=== PATIENT | female | born 1990 | race Caucasian/White ===

== ENCOUNTER 2016-03-25 09:57 | Emergency (ER) | payer OTHER ==
[~2016-03-25] VITALS: Ht 167.6 cm; Wt 70.9 kg
[2016-03-25 10:03] VITALS: TEMP 99
[2016-03-25] MEDS ORDERED: PRENATAL1 TA7 PO (10:07)
[2016-03-25 10:36] VITALS: BP 121/76; PULSE 81
== END 2016-03-25 10:40 | disposition home or self-care (01) ==
LOC: COL.ER 09:57
DX: Z34.92 Encounter for supervision of normal pregnancy, unspecified, second trimester (principal); Z04.1 Encounter for examination and observation following transport accident; Z3A.18 18 weeks gestation of pregnancy

== ENCOUNTER 2016-07-13 14:52 | Outpatient (CLI) | payer OTHER ==
[~2016-07-13] VITALS: Ht 167.6 cm; Wt 80.0 kg
[~2016-07-13 14:52] MED LIST: PRENATAL1 TA7 PO
[2016-07-13 15:19] VITALS: BP 140/85; PULSE 80; TEMP 98.9
[2016-07-13 15:30] VITALS: BP 140/85; PULSE 80; TEMP 98.2
[2016-07-13 15:56] LABS: BASO # 0.1 (0.0-0.2); BASO % 0.3 % (0.0-2.0); EOS % 0.2 % (0-4.0); GRAN # 15.4 (1.4-6.5); GRAN % 79.4 % (42.2-75.2); HEMATOCRIT 38.1 % (37.0-47.0); HEMOGLOBIN 13.3 g/dl (12.5-16.0); LYMPH # 2.5 (1.2-3.4); LYMPH % 12.7 % (20.0-51.0); MEAN CELL VOLUME 89 fl (80.0-100.0); MEAN CORPUSCULAR HEMOGLOBIN 31 pg (27.0-31.0); MEAN CORPUSCULAR HGB CONC 35 g/dl (33.0-37.0); MEAN PLATELET VOLUME 9.9 fl (7.4-10.4); MONO # 1.2 (0.1-0.6); PLATELET COUNT 248 K/mm3 (130-400); RED BLOOD COUNT 4.29 M/mm3 (4.10-5.30); WHITE BLOOD COUNT 19.4 K/mm3 (4.8-10.8)
[2016-07-13 16:00] VITALS: BP 146/89; PULSE 86
[2016-07-13 16:08] LABS: ADJUSTED CALCIUM 10.1 mg/dL (8.4-10.2); ALBUMIN 3.3 gm/dL (3.5-5.0); BILIRUBIN,TOTAL 0.8 mg/dL (0.0-1.0); CALCIUM 9.5 mg/dL (8.4-10.2); CREATININE, serum 0.79 mg/dL (0.52-1.25); POTASSIUM 3.7 mmol/L (3.4-5.0); TOTAL PROTEIN 6.4 gm/dL (6.4-8.2)
[2016-07-13 16:30] VITALS: BP 141/73; PULSE 100
[2016-07-13 17:00] VITALS: BP 133/71; PULSE 89
== END 2016-07-13 17:20 | disposition short-term general hospital (02) ==
LOC: LDRO 14:52
PROVIDERS: Student in an Organized Health Care Education/Training Program
DX: O42.013 Preterm premature rupture of membranes, onset of labor within 24 hours of rupture, third trimester (principal); O13.3 Gestational [pregnancy-induced] hypertension without significant proteinuria, third trimester; Z3A.33 33 weeks gestation of pregnancy
CPT/HCPCS: J0456; J0702; J1580; J7050; J7120

== ENCOUNTER → 2017-12-25 | Outpatient (CLI) | payer OTHER | LOC: MC.RAD 10:36 | DX: Z12.31 Encounter for screening mammogram for malignant neoplasm of breast (principal); N63.10 Unspecified lump in the right breast, unspecified quadrant; Z80.3 Family history of malignant neoplasm of breast ==